=== PATIENT | female | born 1985 | race American Indian/Alaskan Native ===

== ENCOUNTER 2018-05-22 23:18 | Emergency (ER) | payer BC, OTHER ==
[2018-05-22 23:19] VITALS: BMI 38.7
[2018-05-22 23:28] VITALS: BP 123/85; PULSE 86; RESP 16; TEMP 98.5; O2SAT 97
--- NOTE | 2018-05-23 00:05 | C.PDOC ---
History Of Present Illness 32 year old female presents to the ER with a complaint of numbness to the left lateral right foot and 3rd-5th toes that she describes as a tingling sensation intermittently for the past 2 weeks. Denies trauma, pain with weight bearing, or weakness. Time Seen by Provider: 05/22/18 23:41 Chief Complaint (Nursing): Lower Extremity Problem/Injury History Per: Patient History/Exam Limitations: no limitations Onset/Duration Of Symptoms: Days (14) Current Symptoms Are (Timing): Still Present Recent travel outside of the [place]: No Past Medical History Reviewed: Historical Data, Nursing Documentation, Vital Signs Vital Signs: Last Vital Signs Temp 98.5 F 05/22/18 23:24 Pulse 86 05/22/18 23:24 Resp 16 05/22/18 23:24 BP 123/85 05/22/18 23:24 Pulse Ox 97 05/22/18 23:24 - Medical History PMH: Asthma (SEASONAL) Denies: Diabetes, Hepatitis, HTN, Chronic Kidney Disease, Sexually Transmitted Disease - [facility] Procedures EXCISION OF STOMACH, PERCUTANEOUS ENDOSCOPIC APPROACH, VERT (06/19/15) INSPECTION OF UPPER INTESTINAL TRACT, ENDO (06/19/15) Family History: States: Unknown Family Hx - Social History Hx Tobacco Use: Yes Hx Alcohol Use: Yes (occasional) Hx Substance Use: No - Immunization History Hx Tetanus Toxoid Vaccination: No Hx Influenza Vaccination: No Hx Pneumococcal Vaccination: No Review Of Systems Musculoskeletal: Negative for: Foot Pain Skin: Negative for: Rash, Lesions, Bruising Neurological: Positive for: Numbness (Tingling to right foot). Negative for: Weakness Physical Exam - Physical Exam Appears: Non-toxic Skin: Normal Color, Warm, Dry Head: Atraumatic, Normacephalic Eye(s): bilateral: Normal Inspection Extremity: Normal ROM (x4), No Tenderness, Capillary Refill (<2 seconds), No Deformity, No Swelling, Other (Right foot with normal tone, color, and warmth) Pulses: Left Dorsalis Pedis: Normal, Right Dorsalis Pedis: Normal Neurological/Psych: Oriented x3, Normal Speech, Normal Motor, Normal Sensation Gait: Steady ED Course And Treatment O2 Sat by Pulse Oximetry: 97 (Room air) Pulse Ox Interpretation: Normal Progress Note: Patient is resting comfortably in the ER in no acute distress, vitals are stable, will discharge home with instructions to follow up with PMD or podiatry as needed. Disposition Counseled Patient/Family Regarding: Diagnosis, Need For Followup, Rx Given - Disposition Disposition: HOME/ ROUTINE Disposition Time: 00:02 Condition: STABLE Additional Instructions: Please follow up with PMD or Podiatry Return to ER if worse Instructions: Peripheral Neuropathy Forms: [facility] ([place]) - Clinical Impression Clinical Impression: Peripheral neuropathy - PA / LACQUER SHADER / Resident Statement MD/DO has reviewed & agrees with the documentation as recorded. - Scribe Statement The provider has reviewed the documentation as recorded by the Scribisabella Lucero All medical record entries made by the Kyara were at my direction and personally dictated by me. I have reviewed the chart and agree that the record accurately reflects my personal performance of the history, physical exam, medical decision making, and the department course for this patient. I have also personally directed, reviewed, and agree with the discharge instructions and disposition.
== END 2018-05-23 00:12 | disposition home or self-care (01) ==
LOC: C.ER 23:18
DX: G62.9 Polyneuropathy, unspecified (principal)

== ENCOUNTER 2018-10-22 23:26 | Emergency (ER) | payer BC ==
[2018-10-22 23:53] VITALS: RESP 20; O2SAT 100
[2018-10-22 23:57] VITALS: BMI 33.5
[2018-10-23 00:30] LABS: BASO % 0.7 % (0.0-2.0); EOS # 0.3 K/uL (0.0-0.7); EOS % 3.9 % (0.0-4.0); HEMOGLOBIN 11.9 g/dL (11.0-16.0); LYMPH # 1.5 K/uL (1.0-4.3); LYMPH % 22.1 % (20.0-40.0); MEAN CELL VOLUME 85.4 fL (81.0-99.0); MEAN CORPUSCULAR HEMOGLOBIN 28.2 pg (27.0-31.0); MEAN PLATELET VOLUME 9.2 fL (7.2-11.7); MONO # 0.5 K/uL (0.0-0.8); MONO % 7.7 % (0.0-10.0); NEUT # 4.5 K/uL (1.8-7.0); NEUT % 65.6 % (50.0-75.0); NRBC % 0.1 % (0.0-2.0); RBC 4.21 Mil/uL (3.80-5.20); RED CELL DISTRIBUTION WIDTH 15.8 % (11.5-14.5); WHITE BLOOD COUNT 6.8 K/uL (4.8-10.8)
[2018-10-23 00:41] LABS: ALB/GLOB RATIO 1.1 (1.0-2.1); ALBUMIN 4.6 g/dL (3.5-5.0); ALT/SGPT 13 U/L (9-52); AST/SGOT 28 U/L (14-36); BLOOD UREA NITROGEN 17 mg/dL (7-17); CALCIUM 9.9 mg/dl (8.6-10.4); GFR NON-AFRICAN AMERICAN > 60
[2018-10-23 02:06] VITALS: BP 153/92; PULSE 83; TEMP 98.2
--- NOTE | 2018-10-23 06:10 | C.PDOC ---
History Of Present Illness 33-year-old female presents to the ED for evaluation of intermittent left arm pain and numbness which occurred for several hours prior to her arrival. Patient states her symptoms have currently resolved. She denies fever, chills, chest pain, cough, and shortness of breath. Chief Complaint (Nursing): Upper Extremity Problem/Injury History Per: Patient History/Exam Limitations: no limitations Onset/Duration Of Symptoms: Hrs, Waxing/Waning, Intermittent Episodes Current Symptoms Are (Timing): Gone Quality: "Pain" Additional History Per: Patient Past Medical History Reviewed: Historical Data, Nursing Documentation, Vital Signs Vital Signs: Last Vital Signs Temp 98.2 F 10/23/18 02:05 Pulse 83 10/23/18 02:05 Resp 20 10/23/18 02:05 BP 153/92 H 10/23/18 02:05 Pulse Ox 100 10/23/18 02:05 - Medical History PMH: Asthma (SEASONAL) Denies: Diabetes, Hepatitis, HTN, Chronic Kidney Disease, Sexually Transmitted Disease Surgical History: No Surg Hx - [facility] Procedures EXCISION OF STOMACH, PERCUTANEOUS ENDOSCOPIC APPROACH, VERT (06/19/15) INSPECTION OF UPPER INTESTINAL TRACT, ENDO (06/19/15) Family History: States: Unknown Family Hx - Social History Hx Tobacco Use: Yes Hx Alcohol Use: Yes (occasional) Hx Substance Use: No - Immunization History Hx Tetanus Toxoid Vaccination: No Hx Influenza Vaccination: No Hx Pneumococcal Vaccination: No Review Of Systems Constitutional: Negative for: Fever, Chills Cardiovascular: Negative for: Chest Pain Respiratory: Negative for: Cough, Shortness of Breath Musculoskeletal: Positive for: Arm Pain (left ) Physical Exam - Physical Exam Appears: Non-toxic, No Acute Distress Skin: Normal Color, Warm, Dry Head: Atraumatic, Normacephalic Eye(s): bilateral: Normal Inspection Oral Mucosa: Moist Neck: Supple Chest: Symmetrical, No Deformity, No Tenderness Cardiovascular: Rhythm Regular, No Murmur Respiratory: Normal Breath Sounds, No Rales, No Rhonchi, No Wheezing Extremity: Normal ROM, No Tenderness, Capillary Refill (less than 2 seconds ), No Deformity, No Swelling Pulses: Left Radial: Normal, Right Radial: Normal Neurological/Psych: Oriented x3, Normal Speech, Normal Cognition, Normal Motor, Normal Sensation Gait: Steady ED Course And Treatment - Laboratory Results Result Diagrams: 10/23/18 00:18 10/23/18 00:18 Lab Results: Troponin I < 0.0120 ng/mL (0.00-0.120) 10/23/18 00:18 Total Bilirubin 0.4 mg/dL (0.2-1.3) 10/23/18 00:18 AST 28 U/L (14-36) 10/23/18 00:18 ALT 13 U/L (9-52) 10/23/18 00:18 Alkaline Phosphatase 126 U/L (38-126) 10/23/18 00:18 Total Protein 8.7 g/dL (6.3-8.3) H 10/23/18 00:18 Albumin 4.6 g/dL (3.5-5.0) 10/23/18 00:18 Globulin 4.1 gm/dL (2.2-3.9) H 10/23/18 00:18 Albumin/Globulin Ratio 1.1 (1.0-2.1) 10/23/18 00:18 O2 Sat by Pulse Oximetry: 100 (on RA) Pulse Ox Interpretation: Normal - CT Scan/US CT Head Other Rad Studies (CT/US): Read By Radiologist, Radiology Report Reviewed CT/US Interpretation: CT SCAN OF THE BRAIN WITHOUT IV CONTRAST. CLINICAL INDICATION: R/o ICH and fx. TECHNIQUE: Axial and reformatted sagittal and coronal images of the brain obtained without IV contrast administration. Normal size of the ventricles and extra-axial spaces for the patient's age. Normal white matter tracts of the supratentorial brain. Normal basal ganglia and thalami. Normal brainstem. Normal cerebellum. There is no demonstrated extra-axial, intraparenchymal, or intraventricular hemorrhage. There are no findings of an acute ischemic infarction. Normal calvarium. There is no demonstrated fracture. Normal soft tissue structures. Chronic mucosal inflammatory changes of the visualized paranasal sinuses. IMPRESSION: Normal unenhanced CT scan of the brain. Medical Decision Making Medical Decision Making: Progress: Bloodwork, CXR, EKG, CT Head ordered and reviewed. On reassessment, patient is resting comfortably, showing no signs of distress and is stable for discharge. Patient is advised to f/u with her PMD within 1-2 days for further evaluation. Disposition - Disposition Referrals: [facility] Curry, [Non-Staff] - Disposition: HOME/ ROUTINE Disposition Time: 01:00 Condition: GOOD Additional Instructions: JOE PEÑA, thank you for letting us take care of you today. The emergency medical care you received today was directed at your acute symptoms. If you were prescribed any medication, please fill it and take as directed. It may take several days for your symptoms to resolve. Return to the Emergency Department if your symptoms worsen, do not improve, or if you have any other problems. Please contact your doctor or call one of the physicians/clinics you have been referred to that are listed on the Patient Visit Information form that is included in your discharge packet. Bring any paperwork you were given at discharge with you along with any medications you are taking to your follow up visit. Our treatment cannot replace ongoing medical care by a primary care provider outside of the emergency department. Thank you for allowing the [facility] team to be part of your care today. Followup with your primary care doctor this week for re-evaluation and further management. Instructions: Peripheral Neuropathy Forms: [employer] ([place]i) - Clinical Impression Clinical Impression: Peripheral neuropathy - Scribe Statement The provider has reviewed the documentation as recorded by the Scribe (María Elena Gan) Provider Attestation: All medical record entries made by the Scribe were at my direction and personally dictated by me. I have reviewed the chart and agree that the record accurately reflects my personal performance of the history, physical exam, medical decision making, and the department course for this patient. I have also personally directed, reviewed, and agree with the discharge instructions and di sposition.
--- NOTE | 2018-10-23 08:41 | CT ---
Date of service: 10/23/2018 PROCEDURE: CT HEAD WITHOUT CONTRAST. HISTORY: Head injury. COMPARISON: None available. TECHNIQUE: Axial computed tomography images were obtained through the head/brain without intravenous contrast. Radiation dose: Total exam DLP = 1123.12 mGy-cm. This CT exam was performed using one or more of the following dose reduction techniques: Automated exposure control, adjustment of the mA and/or kV according to patient size, and/or use of iterative reconstruction technique. FINDINGS: HEMORRHAGE: No intracranial hemorrhage. BRAIN: No mass effect or edema. No atrophy or chronic microvascular ischemic changes. VENTRICLES: Unremarkable. No hydrocephalus. CALVARIUM: Unremarkable. PARANASAL SINUSES: 1.4 centimeter mucosal retention cyst and or polyp in the right maxillary sinus. Mild mucosal thickening of the ethmoid air cells. MASTOID AIR CELLS: Unremarkable as visualized. No inflammatory changes. OTHER FINDINGS: None. IMPRESSION: No acute intracranial abnormality. Additional findings as above. A preliminary report was generated at 1:08 a.m. on 10/23/[address] Lobo Alfonso from [employer].
--- NOTE | 2018-10-23 09:13 | RAD ---
Date of service: 10/23/2018 HISTORY: chest pain COMPARISON: Chest radiographs 05/08/2015 TECHNIQUE: 1 view obtained. FINDINGS: LUNGS: No active pulmonary disease. PLEURA: No significant pleural effusion identified, no pneumothorax apparent. CARDIOVASCULAR: No aortic atherosclerotic calcification present. Normal cardiac size. No pulmonary vascular congestion. OSSEOUS STRUCTURES: No significant abnormalities. VISUALIZED UPPER ABDOMEN: Normal. OTHER FINDINGS: None. IMPRESSION: No interval acute cardiopulmonary disease appreciated.
== END 2018-10-23 02:12 | disposition home or self-care (01) ==
LOC: C.ER 23:26
DX: G62.9 Polyneuropathy, unspecified (principal)